=== PATIENT | female | born 1990 | race Caucasian/White ===

== ENCOUNTER 2021-09-17 19:05 | Emergency (ER) | payer MEDICAID, SELFPAY ==
--- NOTE | 2021-09-17 19:08 | ED.URI ---
HPI - URI/Sore Throat General Chief Complaint: Upper Respiratory Infection Stated Complaint: cough Time Seen by Provider: 09/17/21 19:08 Source: patient and RN notes reviewed History of Present Illness HPI Narrative: Patient is a 31-year-old female who presents the urgent care with complaints of a cough that started yesterday. Patient states that she has had a couple days of postnasal drainage. Denies of any fevers, wheezing, nausea, vomiting. Patient has been taking Mucinex cough syrup with some relief. Denies of any recent exposures. Patient states that her boss at [facility] wanted her to to be evaluated because she is coughing . Patient did have a negative at home COVID test. No other acute complaints. No acute distress noted. Patient aware of the plan of care. Some parts of this dictation were generated by voice recognition software and may contain typographical and/or grammatical inaccuracies. Related Data Home Medications Medication Instructions Recorded Confirmed No Home Medications 09/17/21 09/17/21 Allergies Allergy/AdvReac Type Severity Reaction Status Date / Time No Known Allergies Allergy Verified 09/17/21 19:19 Review of Systems Review of Systems: CONSTITUTIONAL: Denies fever, chills, or sweats. EYES: Denies visual changes, redness, or discharge. ENT: Denies rhinorrhea, congestion, sore throat, or otalgia. CARDIOVASCULAR: Denies chest pain, palpitations, or edema. RESPIRATORY: Reports of cough without dyspnea GASTROINTESTINAL: Denies abdominal pain, nausea, vomiting, or diarrhea. GENITOURINARY: Denies dysuria or hematuria. SKIN: Denies rash or itching. MUSCULOSKELETAL: Denies back pain, joint pain, or myalgia. NEUROLOGIC: Denies headache, numbness, or weakness. All other systems reviewed are negative, except as documented in HPI. PMFSH Comments At the time of my signature, I reviewed and agree with the nursing past medical, surgical, social, and family history. There is no relevant family history pertinent to the patient complaint. Exam Narrative: GENERAL: This is a well-nourished, well-developed patient, in no apparent distress. HEAD: normocephalic, atraumatic. EYES: PERRL. Sclera clear/white. Vision is grossly intact. EARS: External ears normal, auditory canals clear and without drainage, TMs normal without perforation. Hearing grossly intact. NOSE: External nose normal with no obvious nasal discharge, nares without redness, no rhinorrhea. THROAT: Mucous membranes moist, posterior pharynx clear. Moderate postnasal drainage NECK: Neck supple CARDIOVASCULAR: Regular rate and rhythm without murmurs, gallops, or rubs. RESPIRATORY: Clear to auscultation. Breath sounds equal bilaterally. No wheezes, rales, or rhonchi. SKIN: warm, intact with no suspicious lesions or rash, good texture and turgor. NEURO: awake, alert, and oriented to person, place and time. There were no obvious focal neurologic abnormalities. EXTREMITIES: No clubbing, cyanosis, or edema. Course Course Level of Care: Express Care Visit Vital Signs Vital signs: Vital Signs Temperature 98.5 F 09/17/21 19:15 Pulse Rate 92 09/17/21 19:15 Respiratory Rate 16 09/17/21 19:15 Blood Pressure 129/78 09/17/21 19:15 Pulse Oximetry 100 09/17/21 19:15 Temperature 98.5 F 09/17/21 19:15 Pulse Rate 92 09/17/21 19:15 Respiratory Rate 16 09/17/21 19:15 Blood Pressure 129/78 09/17/21 19:15 Pulse Oximetry 100 09/17/21 19:15 Reviewed MDM - URI/Sore Throat MDM Narrative Medical decision making narrative: Symptoms are consistent with the common cold/seasonal allergies. Advised the patient to continue the Mucinex cough syrup or take a Mucinex tablet. Avoid medication with the pseudoephedrine. May use a daily antihistamine such as Zyrtec or Claritin. Would recommend Benadryl and Flonase prior to bedtime. Follow-up with your PCP within 2 to 5 days or for worsening symptoms or failure to improve. Differen
[2021-09-17 19:15] VITALS: BP 129/78; PULSE 92; RESP 16; TEMP 36.9; O2SAT 100
== END 2021-09-17 19:29 | disposition home or self-care (01) ==
PROVIDERS: Emergency Provider Nurse Practitioner Family
DX: J00 Acute nasopharyngitis [common cold] (principal); E28.2 Polycystic ovarian syndrome
CPT/HCPCS: 99211; G0463

== ENCOUNTER 2021-09-21 08:04 | Emergency (ER) | payer MEDICAID, SELFPAY ==
--- NOTE | 2021-09-21 08:10 | ED.URI ---
HPI - URI/Sore Throat General Chief Complaint: Upper Respiratory Infection Stated Complaint: Cough/Congestion/Ear Pain Time Seen by Provider: 09/21/21 08:14 Source: patient, RN notes reviewed and old records reviewed Mode of arrival: ambulatory Limitations: no limitations History of Present Illness HPI Narrative: 31-year-old female presents to [facility] with complaints of cough and congestion since Friday and nasal drainage. Patient reports since Friday she has had right ear pain and popping. Patient states that she has been taking Claritin and cough syrup. Patient states highest temperatures 99F, denies any nausea vomiting or diarrhea or any body aches. Cough is harsh but productive, denies any shortness of breath. MD elicited complaint: cough Related Data Allergies Allergy/AdvReac Type Severity Reaction Status Date / Time No Known Allergies Allergy Verified 09/21/21 08:20 Review of Systems Review of Systems: CONSTITUTIONAL: Low grade temp,no chills, or sweats. EYES: Denies visual changes, redness, or discharge. ENT: Positive rhinorrhea, congestion, no sore throat, right otalgia. CARDIOVASCULAR: Denies chest pain, palpitations, or edema. RESPIRATORY: Positive for cough no dyspnea. GASTROINTESTINAL: Denies abdominal pain, nausea, vomiting, or diarrhea. GENITOURINARY: Denies dysuria or hematuria. SKIN: Denies rash or itching. MUSCULOSKELETAL: Denies back pain, joint pain, or myalgia. NEUROLOGIC: Denies headache, numbness, or weakness. PSYCHIATRIC: Denies anxiety or depression. All systems reviewed & are unremarkable except as noted in HPI and below PMFSH Past Medical History Medical History (Updated 09/21/21 @ 08:41 by Izzy Rainey NP) No significant past medical history Surgical History Surgical History (Updated 09/21/21 @ 08:41 by Izzy Rainey NP) No history of previous surgery Social History Social History (Updated 09/21/21 @ 08:40 by Izzy Rainey NP) Smoking packs per day: 0.25 Smoking cigarettes per day: 5.0 Years smoked: 13 Smoking pack-years: 3.25 Smoking status: Current every day smoker Tobacco type: cigarettes Alcohol intake: current Alcohol use details: social Substance use: unknown Living arrangements: with family Gender identity (if verbalized by the patient): Female Comments At time of signature, agree with nursing past medical, surgical, social and family history. There is no relevant family history pertinent to the presenting complaint Exam Narrative: GENERAL: Ill-appearing, well-nourished,obese and in no acute distress. HEAD: Normocephalic, atraumatic. EYES: PERRLA and EOMI. ENT: Nares pale red, clear rhinorrhea no epistaxis. Mucous membranes moist.Right TM red and bulging no drainage noted, Left ear normal with some old wax in canal, throat red no lesions or exudates or tonsil swelling NECK: Supple.no lymphadenopathy CHEST: Clear to auscultation. No respiratory distress.loose cough SAO2 99% on room air HEART: Regular rate and rhythm. No murmur heard. Normal peripheral pulses. ABDOMEN: Soft, nontender, nondistended, normal active bowel sounds. EXTREMITIES: Normal range of motion. No edema. SKIN: Warm, dry, no rash. NEURO: No focal deficits. Alert and oriented x3. Course Course Level of Care: Express Care Visit MDM - URI/Sore Throat Differential Diagnosis Differential diagnosis: Likely upper respiratory infection, otitis media, viral infection and other (acute cough) Medical Records Attestation: I reviewed the patient's medical records. Critical Care Time Critical Care Time Critical Care Time: No Discharge Plan Discharge Clinical Impression: Otitis media Qualifiers: Otitis media type: serous Chronicity: acute Laterality: right Recurrence: non-recurrent Qualified Code(s): H65.01 - Acute serous otitis media, right ear Upper respiratory infection Qualifiers: URI type: unspecified URI Qualified Code(s): J06.9 - Acute upper respirator
[2021-09-21 08:11] VITALS: BP 123/75; PULSE 86; RESP 20; TEMP 36.4; O2SAT 99
== END 2021-09-21 08:35 | disposition home or self-care (01) ==
PROVIDERS: Emergency Provider Registered Nurse
DX: H65.01 Acute serous otitis media, right ear (principal); J06.9 Acute upper respiratory infection, unspecified; F17.210 Nicotine dependence, cigarettes, uncomplicated
CPT/HCPCS: 99213; G0463

== ENCOUNTER 2022-10-17 10:36 | Emergency (ER) | payer BC, SELFPAY ==
[2022-10-17 10:46] VITALS: BP 118/57; PULSE 77; RESP 20; TEMP 37.3; O2SAT 100
--- NOTE | 2022-10-17 10:46 | ED.FEMALEGU ---
HPI - Female Genitourinary General Chief complaint: ACCOUNTING CLERK Stated complaint: Paperwork stating Time Seen by Provider: 10/17/22 10:46 Source: patient and RN notes reviewed History of Present Illness HPI Narrative: Patient is a 32-year-old female presents to urgent care stating that she needs verification of . Patient states that she has taken several tests at home or positive. 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 Patient states that she has an ultrasound scheduled next week but has not yet seen a behavior clinician. Patient has also been taking her mother's metformin for PCOS however does not have her on prescription and has not seen a behavior clinician for . States that she would be approximately 5 weeks . Patient denies any current complaints. No acute distress noted. Patient aware of the plan of care. Some parts of this dictation were generated by voice recognition software and may contain typographical and/or grammatical inaccuracies. Related Data Home Medications Medication Instructions Recorded Confirmed metformin 500 mg tablet 500 mg PO DAILY 10/17/22 10/17/22 Allergies Allergy/AdvReac Type Severity Reaction Status Date / Time No Known Allergies Allergy Verified 10/17/22 10:58 Review of Systems Review of Systems: CONSTITUTIONAL: Denies fever, chills, or sweats. EYES: Denies visual changes, redness, or discharge. ENT: Denies rhinorrhea, congestion, sore throat, or otalgia. CARDIOVASCULAR: Denies chest pain, palpitations, or edema. RESPIRATORY: Denies cough or dyspnea. GASTROINTESTINAL: Denies abdominal pain, nausea, vomiting, or diarrhea. GENITOURINARY: Denies dysuria or hematuria. SKIN: Denies rash or itching. MUSCULOSKELETAL: Denies back pain, joint pain, or myalgia. NEUROLOGIC: Denies headache, numbness, or weakness. All other systems reviewed are negative, except as documented in HPI. [facility] Past Medical History Medical History (Updated 10/17/22 @ 11:14 by SUSHIL Lion) No significant past medical history Surgical History Surgical History (Updated 09/21/21 @ 08:41 by Izzy Rainey NP) No history of previous surgery Social History Social History (Updated 09/21/21 @ 08:40 by Izzy Rainey NP) Smoking packs per day: 0.25 Smoking cigarettes per day: 5.0 Years smoked: 13 Smoking pack-years: 3.25 Smoking status: Current every day smoker Tobacco type: cigarettes Alcohol intake: current Alcohol use details: social Substance use: unknown Living arrangements: with family Gender identity (if verbalized by the patient): Female Comments At the time of my signature, I reviewed and agree with the nursing past medical, surgical, social, and family history. There is no relevant family history pertinent to the patient complaint. Exam Narrative: GENERAL: This is a well-nourished, well-developed patient, in no apparent distress. HEAD: normocephalic, atraumatic. EYES: PERRL. Sclera clear/white. Vision is grossly intact. EARS: External ears normal, NOSE: External nose normal with no obvious nasal discharge, nares without redness, no rhinorrhea. THROAT: Mucous membranes moist NECK: Neck supple SKIN: warm, intact with no suspicious lesions or rash, good texture and turgor. NEURO: awake, alert, and oriented to person, place and time. There were no obvious focal neurologic abnormalities. EXTREMITIES: No clubbing, cyanosis, or edema. Course Course Level of Care: Express Care Visit Vital Signs Vital signs: Vital Signs Temperature 99.2 F 10/17/22 10:46 Pulse Rate 77 10/17/22 10:46 Respiratory Rate 20 10/17/22 10:46 Blood Pressure 118/57 L 10/17/22 10:46 Pulse Oximetry 100 10/17/22 10:46 Oxygen Delivery Room Air 10/17/22 10:46 Temperature 99.2 F 10/17/22 10:46 Pulse Rate 77 10/17/22 10:46 Respiratory Rate 20
== END 2022-10-17 11:18 | disposition home or self-care (01) ==
PROVIDERS: Emergency Provider Nurse Practitioner Family
DX: Z32.01 Encounter for pregnancy test, result positive (principal); O99.331 Smoking (tobacco) complicating pregnancy, first trimester; Z3A.01 Less than 8 weeks gestation of pregnancy; F17.210 Nicotine dependence, cigarettes, uncomplicated
CPT/HCPCS: 81025; 99202; G0463